=== PATIENT | male | born 1970 ===

== ENCOUNTER 2023-08-26 06:06 | Day surgery (SDC) | payer OTHER ==
[~2023-08-26 06:06] MED LIST: ATORVAST PO; [UNRECOGNIZED DRUG - CODE]; [UNRECOGNIZED DRUG - OTHER] PO
== END 2023-08-26 11:10 | disposition home or self-care (01) ==
LOC: AMB-ENDOS 06:06 → ADM 06:06 → AMB-ENDOS 11:10 → CIR.AMB 12:45
PROVIDERS: ATTEND Colon & Rectal Surgery
DX: R13.19 Other dysphagia (principal); G12.21 Amyotrophic lateral sclerosis; E78.5 Hyperlipidemia, unspecified; Z20.822 Contact with and (suspected) exposure to COVID-19